=== PATIENT | male | born 1975 | race Hispanic/Latino ===

== ENCOUNTER 2024-10-29 04:16 | Emergency (ER) | payer OTHER ==
[~2024-10-29] VITALS: Ht 170.2 cm; Wt 108.9 kg
[2024-10-29 05:03] LABS: BASOPHILS # (AUTO) 0.05 K/uL (0.00-0.20); BASOPHILS % (AUTO) 0.6 % (0.0-5.0); EOSINOPHILS # (AUTO) 0.41 K/uL (0.00-0.70); EOSINOPHILS % (AUTO) 4.5 % (0.0-8.0); HEMATOCRIT 39.4 % (42-54); IMMATURE GRANULOCYTE ABSOLUTE 0.04 K/uL (0-1); LYMPHOCYTES # (AUTO) 1.7 K/uL (1.0-4.8); LYMPHOCYTES % (AUTO) 19.1 % (21.0-51.0); MEAN CORPUSCULAR HEMOGLOBIN 30.8 pg (27.0-33.0); MEAN CORPUSCULAR HGB CONC 35.3 g/dL (32.0-36.0); MEAN CORPUSCULAR VOLUME 87.4 fL (79-99); MONOCYTES # (AUTO) 0.6 K/uL (0.1-1.0); MONOCYTES % (AUTO) 6.1 % (3.0-13.0); NEUTROPHILS # (AUTO) 6.3 K/uL (1.8-7.7); NEUTROPHILS % (AUTO) 69.3 % (40.0-77.0); PLATELET COUNT (AUTO) 174 K/uL (130-400); RED BLOOD CELL COUNT(AUTO) 4.51 MIL/uL (4.50-6.20); RED CELL DISTRIBUTION WIDTH 13.1 % (11.0-15.5)
[2024-10-29 05:16] LABS: CREATININE 0.8 mg/dL (0.5-1.3); POTASSIUM 3.4 mmol/L (3.5-5.1)
--- NOTE | 2024-10-29 05:28 | ERN ---
ED Note History of Present Illness Stated Complaint: SHORTNESS OF BREATH Chief Complaint: Shortness of Breath Time Seen by MD: 04:32 Dictation: This is a 49-year-old morbidly obese male who came into the emergency room as he felt that he was choking and could not get his breath. Patient has multiple medical problems and psychiatric issues and substance abuse. He was trying to be sober and indicated that last night he relapsed. Starting from 7:00 p.m. to midnight he was drinking alcohol and also indulged in crack cocaine. Subsequently he developed tingling all over and difficulty breathing along with a sensation of his throat closing up. He came into the ER for further evaluation Temperature 97.8 pulse 63 respirations 16 blood pressure 110/57 pulse oximetry 96% on room air His chronic medical problems include diabetes mellitus, hypertension, hypercholesterolemia, morbid obesity, PTSD, depression Past Medical History Past Medical History: Diabetes-Type II, High Cholesterol, Hypertension Surgical History: None PSYCH History: anxiety, depression, post traumatic stress Family History: Negative Social History: Drugs, ETOH RN Note Reviewed/Agreed w/PFSH: Yes Review of System Dictation Constitutional: Negative for fever,chills, and weight loss Eyes: Negative for injury, pain,redness, and discharge ENT: Negative for injury,pain or swelling Cardiovascular: Negative for chest pain, palpitations, and edema Respiratory: Positive for shortness of breath, cough, and wheezing, Abdomen/GI: Negative for abdominal pain, nausea, vomiting, diarrhea, and constipation Back: Negative for injury and pain : Negative for injury, bleeding and discharge MS/Extremity: Negative for injury and deformity Skin: Negative for rash, and discoloration Neuro: Negative for headache, weakness, numbness, tingling, and seizure Psych: Negative for suicide ideation, homicidal ideation, and hallucinations Initial Vital Sign VS Vital Signs Date Time Temp Pulse Resp B/P (MAP) Pulse Ox O2 Delivery O2 Flow Rate FiO2 10/29/24 04:18 63 16 110/57 96 Room Air 0 10/29/24 05:36 21 10/29/24 06:34 98.4 Physical Exam Dictation General: awake, alert, NAD morbidly obese male Head/Face: Normocephalic, atraumatic Eyes: PERRL, EOMI, vision at baseline ENT: oral cavity clear, TMs clear, no signs of infection Neck: Trachea midline, supple, no nuchal rigidity-large amounts of adipose tissue and short thick neck Cardiovascular: RRR, normal S1/S2, No MRGs, no JVD Respiratory: CTAB, no respiratory distress, No rales or wheezes Abdomen: Soft, non-tender, non-distended, normal bowel sounds, no guarding or rebound. Skin: Warm, dry, normal turgor, no rash MS/Extremity: Pulses equal, no cyanosis, neurovascular intact, FROM Neuro: COAx4, GCS 15, strength 5/5, CN 2-12 intact, normal cerebellar exam, normal gait, Psych: Normal behavior, mood, and affect normal Extremities-trace edema without any palpable cords, Homans sign is negative Results (Laboratory/Radiology) Laboratory/Radiology Laboratory Tests Test 10/29/24 04:32 10/29/24 06:48 10/29/24 07:07 White Blood Count 9.0 K/uL (4.8-10.8) Red Blood Count 4.51 MIL/uL (4.50-6.20) Hemoglobin 13.9 g/dL (14.0-18.0) L Hematocrit 39.4 % (42-54) L Mean Corpuscular Volume 87.4 fL (79-99) Mean Corpuscular Hemoglobin 30.8 pg (27.0-33.0) Mean Corpuscular Hemoglobin Concent 35.3 g/dL (32.0-36.0) Red Cell Distribution Width 13.1 % (11.0-15.5) Platelet Count 174 K/uL (130-400) Mean Platelet Volume 11.4 fL (7.5-10.5) H Immature Granulocyte % (Auto) 0.4 % (0-1) Neutrophils (%) (Auto) 69.3 % (40.0-77.0) Lymphocytes (%) (Auto) 19.1 % (21.0-51.0) L Monocytes (%) (Auto) 6.1 % (3.0-13.0) Eosinophils (%) (Auto) 4.5 % (0.0-8.0) Basophils (%) (Auto) 0.6 % (0.0-5.0) Neutrophils # (Auto) 6.3 K/uL (1.8-7.7) Lymphocytes # (Auto) 1.7 K/uL (1.0-4.8) Monocytes # (Auto) 0.6 K/uL (0.1-1.0) Eosinophils # (Auto) 0.41 K/uL (0.00-0.70) Basophils # (Auto) 0.05 K/uL (0.00-0.20) Absolute Immature Granulocyte (auto 0.04 K/uL (0-1) Nucleated Red Blood Cells 0.0 % (0.0-0.19) Sodium Level 141 mmol/L (136-145) Potassium Level 3.4 mmol/L (3.5-5.1) L Chloride Level 105 mmol/L (101-111) Carbon Dioxide Level 27 mmol/L (21-32) Blood Urea Nitrogen 6 mg/dL (7-18) L Creatinine 0.8 mg/dL (0.5-1.3) Glomerular Filtration Rate Calc 107 mL/min (>90) Random Glucose 98 mg/dL (70-105) Total Calcium 8.2 mg/dL (8.5-10.1) L Urine Opiates Screen NEGATIVE (NEGATIVE) Urine Barbiturates Screen NEGATIVE (NEGATIVE) Urine Phencyclidine Screen NEGATIVE (NEGATIVE) Urine Amphetamines Screen NEGATIVE (NEGATIVE) Urine Benzodiazepines Screen NEGATIVE (NEGATIVE) Urine Cocaine Screen POSITIVE (NEGATIVE) H Urine Marijuana (THC) Screen NEGATIVE (NEGATIVE) Serum Alcohol < 3 mg/dL (0-10) Labs Reviewed?: Yes ED Course ED Course Orders Procedure Category Date Status Time Cbc With Differential LAB 10/29/24 Complete 04:37 Basic Metabolic Panel LAB 10/29/24 Complete 04:37 Chest 1vw RAD 10/29/24 Taken 04:43 12 Lead Ekg Tracing- EKG 10/29/24 Complete Technical 04:43 Drug Screen Urine LAB 10/29/24 Complete 05:05 Ipratropium/Albuterol PHA 10/29/24 Complete Neb (Duoneb) 05:30 Methylprednisolone PHA 10/29/24 Complete Succ 40mg (Solu-Medro 05:30 Alcohol, Blood LAB 10/29/24 Complete 05:28 Potassium Bicarb/Cit PHA 10/29/24 Complete Ac 25meq (K-Lyte Ta 06:00 Ketorolac PHA 10/29/24 Complete Tromethamine 15mg/Ml 07:30 Current Medications Medications (Trade) Dose Ordered Sig/Santhosh Route PRN Reason Start Time Stop Time Status Last Admin Dose Admin Albuterol (DUOneb) 1 UDVIAL ONCE ONCE IH 10/29/24 05:30 10/29/24 05:31 DC 10/29/24 06:26 Ketorolac Tromethamine (toRADol) 15 mg ONCE ONCE IM 10/29/24 07:30 10/29/24 07:31 DC 10/29/24 07:31 Methylprednisolone Sodium Succinate (Solu-medROL 40MG) 40 mg ONCE ONCE IM 10/29/24 05:30 10/29/24 05:31 DC 10/29/24 06:02 Potassium Bicarbonate (K-Lyte Tablet Eff 25 Meq Tablet.eff) 25 meq ONCE ONCE PO 10/29/24 06:00 10/29/24 06:01 DC 10/29/24 06:02 Vital Signs Date Time Temp Pulse Resp B/P (MAP) Pulse Ox O2 Delivery O2 Flow Rate FiO2 10/29/24 08:05 97.3 57 14 103/61 97 Room Air* 0 21 10/29/24 06:34 98.4 52 16 94/54 95 Room Air* 0 21 10/29/24 06:28 54 20 10/29/24 05:36 53 15 98/48 94 Room Air* 0 21 10/29/24 04:18 63 16 110/57 96 Room Air 0 We will perform diagnostic labs, advanced imaging and administer medications according to the patient's complaint. Once the results are available, will review and personally interpreted the labs to rule out any acute life- threatening emergency the trach require immediate intervention and treatment. I will then re-evaluate the patient after treatment and diagnostic exams have return to determine whether the patient requires any further testing, can safely be discharged home or need further admission to hospital for additional treatment and evaluation. Medical Decision Making MDM MDM: Differential diagnosis: Reactive airway dysfunction syndrome, chemical pneumonitis, chemical bronchitis, crack lung Rationale: Tests considered and ordered secondary to shared decision making include: Previous outside records reviewed: Old ER visits. Risk of complication and/or morbidity or mortality of patient management: None Medications-Per medication reconciliation Need for hospitalization: Patient does not meet criteria for hospitalization. Need for emergency major/minor surgery: No There are no social concerns with this patient. Prescription drug management Prescriptions will include symptomatic care Patient's prior external medical records from other ER visits were reviewed by me as indicated. Prior testing and results from previous visits were reviewed. Prior tests were taken into account with medical decision making and resource utilization, independent historian/historians were used to obtain complete medical history. I independently interpreted the test that were performed, results were reviewed by me and considered findings on radiology if ordered. Medical management and examination interpretation discussions were had by me with other qualified healthcare professionals as indicated for the patient's care. Problem List Problem List: (1) Reactive airways dysfunction syndrome (2) Cocaine intoxication (3) Alcohol abuse DX & DISP Disposition: Discharge Departure Impression: Primary Impression: Reactive airways dysfunction syndrome Additional Impressions: Cocaine intoxication, Alcohol abuse Condition: Stable Additional Instructions: Patient and the caregiver have been informed of all the diagnostic tests and the imaging conducted during the today's visit to the emergency room and has verbalized understanding of the results I have personally reviewed and interpreted all diagnostic exams performed here in the ER today as well as the vital signs documented by the nursing staff. The patient is now being discharged to home and should follow up with the primary care physician or the specialist as directed by the ER staff. Follow-up with primary care provider in 1 to 2 days. Take medications as directed here in the emergency room. Okay to continue home medications unless otherwise discussed during your visit in the emergency room today. Return to your nearest emergency room if symptoms worsen or if there is no improvement. Call 911 if you need immediate assistance. Take Tylenol or Motrin [id number] as needed and if no contraindications are present. Increase oral hydration. A wound culture or urine culture was ordered here in the em ergency room department please follow-up with primary care provider and advise them to get repeat ports from our facility. If you had any Jeet wrap/splints that were applied here, please do not remove them until you see your primary care or specialty. Referrals: SALAZAR ALDANA MD (PCP) Time of Disposition: 08:14 YASSINE DILL MD Oct 29, 2024 05:28 KENDRA CASE MD Oct 29, 2024 08:14
--- NOTE | 2024-10-29 05:51 | NUR ---
THOPU INFORMED ABOUT POTASSIUM AND CL LEVELS; ORDERS RECEIVED AND TRANSCRIBED
[2024-10-29] MEDS: Solu-medROL 40MG VIAL IM ONE (06:02)
[2024-10-29] MEDS: PoTASSium BIcarbonate/CIT AC 25 MEQ TABLET.EFF PO ONE (06:02)
[2024-10-29] MEDS: IpraTROPium/alBUTERol SULFATE 3 ML SOLUTION IH ONE (06:26)
[2024-10-29 06:28] VITALS: PULSE 54; RESP 20
--- NOTE | 2024-10-29 06:31 | EKG ---
[facility] Test Date: 2024-10-29 Test Time: 05:23:12 Pat Name: CARTER ISSA Department: [facility] Patient [place]: [facility] [id number] Room: Gender: Sales Consultant Insurance: [id number] : [id number] Requested By: YASSINE DILL Order Number: [id number] Reading MD: Angel Watson Measurements Intervals [place] Rate: 53 P: 2 IA: 162 QRS: 25 QRSD: 91 T: 55 QT: 476 QTc: 447 Interpretive Statements Sinus rhythm Low voltage, precordial leads No previous ECG available for comparison Electronically Signed On 10-29-2024 19:09:19 INSIDE OUTSIDE SALES REPRESENTATIVE by Angel Watson Please click the below link to view image of tracing.
--- NOTE | 2024-10-29 07:03 | NUR ---
REPORT GIVEN TO MICHAEL ARAMBULA AT THIS TIME
[2024-10-29 07:30] LABS: AMPHET/METH SCREEN,URINE NEGATIVE (NEGATIVE); BARBITURATE SCREEN, URINE NEGATIVE (NEGATIVE); BENZODIAZEPINES SCREEN,URINE NEGATIVE (NEGATIVE); CANNABINOID SCREEN,URINE NEGATIVE (NEGATIVE); COCAINE SCREEN,URINE POSITIVE (NEGATIVE); OPIATE SCREEN,URINE NEGATIVE (NEGATIVE); PHENCYCLIDINE SCREEN,URINE NEGATIVE (NEGATIVE)
[2024-10-29] MEDS: ketOROlac 15MG/ML VIAL (15MG/ML) IM ONE (07:31)
[2024-10-29 08:05] VITALS: BP 103/61; PULSE 57; RESP 14; TEMP 97.4; O2SAT 97
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
--- NOTE | 2024-10-29 09:50 | HMCIMG ---
CHEST 1VW HISTORY: Shortness of breath COMPARISON: None FINDINGS: A frontal projection of the chest was obtained. No acute pulmonary infiltrates is seen. The heart is borderline enlarged. Prominent interstitial markings are seen. Degenerative changes are seen. No evidence of aortic calcification is seen. IMPRESSION: 1. No acute pulmonary infiltrate is seen.
== END 2024-10-29 08:35 | disposition home or self-care (01) ==
LOC: EDH 04:16
DX: J68.3 Other acute and subacute respiratory conditions due to chemicals, gases, fumes and vapors (principal); F14.129 Cocaine abuse with intoxication, unspecified; F10.10 Alcohol abuse, uncomplicated; E11.9 Type 2 diabetes mellitus without complications; E78.00 Pure hypercholesterolemia, unspecified; I10 Essential (primary) hypertension
CPT/HCPCS: 99285; 71045; 80048; 80305; 85025; 36415; 96372 ×2; 93005; 94640; J2919; J1885

== ENCOUNTER 2024-11-03 06:00 | Emergency (ER) | payer OTHER ==
[~2024-11-03] VITALS: Ht 170.2 cm; Wt 108.9 kg
[2024-11-03 06:03] VITALS: TEMP 97.5
[2024-11-03 06:26] LABS: BASOPHILS # (AUTO) 0.04 K/uL (0.00-0.20); BASOPHILS % (AUTO) 0.4 % (0.0-5.0); EOSINOPHILS # (AUTO) 0.41 K/uL (0.00-0.70); EOSINOPHILS % (AUTO) 4.2 % (0.0-8.0); IMMATURE GRANULOCYTE ABSOLUTE 0.04 K/uL (0-1); LYMPHOCYTES % (AUTO) 20.2 % (21.0-51.0); MEAN CORPUSCULAR HEMOGLOBIN 31.5 pg (27.0-33.0); MEAN CORPUSCULAR HGB CONC 36.4 g/dL (32.0-36.0); MEAN CORPUSCULAR VOLUME 86.5 fL (79-99); MONOCYTES # (AUTO) 0.7 K/uL (0.1-1.0); MONOCYTES % (AUTO) 6.9 % (3.0-13.0); NEUTROPHILS # (AUTO) 6.6 K/uL (1.8-7.7); NEUTROPHILS % (AUTO) 67.9 % (40.0-77.0); PLATELET COUNT (AUTO) 184 K/uL (130-400); RED BLOOD CELL COUNT(AUTO) 4.51 MIL/uL (4.50-6.20); RED CELL DISTRIBUTION WIDTH 13.2 % (11.0-15.5); WHITE BLOOD COUNT (AUTO) 9.7 K/uL (4.8-10.8)
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
[2024-11-03 06:37] LABS: CREATININE 0.8 mg/dL (0.5-1.3); POTASSIUM 3.6 mmol/L (3.5-5.1)
[2024-11-03] MEDS ORDERED: IOHEXOL-350 50ML VIAL IV ONE (06:52)
--- NOTE | 2024-11-03 06:55 | NUR ---
REPORT RECEIVED FROM VIPUL KATHLEEN
--- NOTE | 2024-11-03 07:05 | NUR ---
PT JUST RETURNED FROM RADIOLOGY
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
[2024-11-03 08:24] VITALS: BP 103/48; PULSE 60; RESP 17; O2SAT 98
--- NOTE | 2024-11-04 09:22 | HMCIMG ---
CHEST 1VW REASON: SOB COMPARISON: 10/29/2024 FINDINGS: Heart size is normal and unchanged. There is central pulmonary vascular fullness which may be early vascular congestion. There are no pleural effusions. There are no focal infiltrates. IMPRESSION: 1. The mild central pulmonary vascular congestion, new since prior exam.
[2024-11-04] MEDS ORDERED: ISOS-58 PO (15:14)
[2024-11-04] MEDS ORDERED: DOXE10CA2 PO (15:14)
[2024-11-04] MEDS ORDERED: VENL50TA29 PO (15:14)
[2024-11-04] MEDS ORDERED: METO-391 PO (15:15)
[2024-11-04] MEDS ORDERED: ASPI-1005 PO (15:15)
== END 2024-11-03 08:26 | disposition home or self-care (01) ==
LOC: EDH 06:00
DX: J02.9 Acute pharyngitis, unspecified (principal); F14.129 Cocaine abuse with intoxication, unspecified; E11.9 Type 2 diabetes mellitus without complications; E78.00 Pure hypercholesterolemia, unspecified; F17.290 Nicotine dependence, other tobacco product, uncomplicated; F20.9 Schizophrenia, unspecified; I10 Essential (primary) hypertension
CPT/HCPCS: 99285; 70491; 71045; 82550; 84484; 80048; 85025; 36415; Q9967

== ENCOUNTER 2025-07-23 17:01 | Emergency (ER) | payer MEDICARE, OTHER ==
[~2025-07-23] VITALS: Ht 172.7 cm; Wt 102.1 kg
[~2025-07-23 17:01] MED LIST: ASPI-1005 PO; DOXE10CA2 PO; ISOS-58 PO; METO-391 PO; VENL50TA29 PO
--- NOTE | 2025-07-23 17:10 | NUR ---
FSBS-465MG/DL
[2025-07-23 17:19] VITALS: TEMP 97.9
[2025-07-23 17:44] LABS: IMMATURE GRANULOCYTE ABSOLUTE 0.06 K/uL (0-1); NUCLEATED RED BLOOD CELLS 0.0 % (0.0-0.19); PLATELET COUNT (AUTO) 180 K/uL (130-400); RED BLOOD CELL COUNT(AUTO) 4.96 MIL/uL (4.50-6.20); RED CELL DISTRIBUTION WIDTH 13.0 % (11.0-15.5); WHITE BLOOD COUNT (AUTO) 8.3 K/uL (4.8-10.8)
[2025-07-23] MEDS: 0.9%NACL 1000ML 1,000 ML IV ONE (17:47)
[2025-07-23 18:03] LABS: CREATININE 1.0 mg/dL (0.5-1.3); GLOMERULAR FILTR. RATE CALC 91.0 mL/min (>90); SODIUM SERUM 126.0 mmol/L (136-145); UREA NITROGEN, BLOOD 12.0 mg/dL (7-18)
[2025-07-23 18:14] LABS: GLUCOSE,RANDOM 491.0 mg/dL (70-105)
[2025-07-23 18:43] LABS: APPEARANCE,URINE CLEAR (CLEAR); GLUCOSE, URINE (UA) >=1000 mg/dL (NEGATIVE); LEUKOCYTE ESTERASE ,URINE NEGATIVE Leu/uL (NEGATIVE); NITRATE,URINE NEGATIVE (NEGATIVE); OCCULT BLOOD,URINE NEGATIVE (NEGATIVE)
[2025-07-23 18:53] LABS: ADD UA MICROSCOPIC NO
--- NOTE | 2025-07-23 19:02 | ERN ---
General Chief Complaint: Hyperglycemia Stated Complaint: HYPERGLYCEMIA Time Seen by MD: 19:14 History of Present Illness Initial Comments This is a 49-year-old male who presented to the emergency department following laboratory evaluation at a [facility] facility, where he was found to have elevated blood glucose. He reports progressive tiredness and fatigue. Two days prior to presentation, he noted transient numbness in the right lower extremity, which has since resolved. He currently denies any ongoing sensory deficits.There is no history of burning during urination, visual disturbances, or changes in bowel or bladder function. Allergies: Coded Allergies: No Known Drug Allergies (Unverified Allergy, Unknown, 11/03/24) Home Meds Reported Medications Metoprolol Succinate (Metoprolol Succinate) 50 Mg Tab.er.24h, 0.5 TAB PO DAILY for 30 Days, #30 TAB 0 Refills 11/04/24 Aspirin (ASPIRIN 81MG CHEW TAB) 81 Mg Tab.chew, 1 TAB PO DAILY for 30 Days, #30 TAB 0 Refills 11/04/24 Doxepin HCl (Doxepin HCl) 10 Mg Capsule, 2 CAP PO HS for 30 Days, #30 CAP 0 Refills 11/04/24 Venlafaxine HCl (Venlafaxine HCl) 50 Mg Tablet, 1 TAB PO DAILY for 30 Days, #60 TAB 0 Refills 11/04/24 Isosorbide Mononitrate (Isosorbide Mononitrate) 20 Mg Tablet, 60 MG PO DAILY, TAB 11/04/24 Past Medical History Past Medical History: Anxiety, Depression, Diabetes-Type II, High Cholesterol, Hypertension Medical History Other: SUBSTANCE ABUSE, PTSD, CHRONIC PAIN Past Surgical History: Other Surgical History Other: RT WRIST SX, RT KNEE SX Family History Family History: Negative Social History Social History: Drugs, ETOH Constitutional: (+) weakness (Feels tired and fatigued easily) EENTM: (-) eye pain, (-) blurred vision, (-) tearing, (-) double vision, (-) ear pain, (-) ear discharge, (-) nose pain, (-) nose congestion, (-) throat p ain, (-) Throat swelling, (-) mouth pain, (-) tooth pain, (-) mouth swelling, (- ) other documentation Respiratory: (-) cough, (-) orthopnea, (-) short of breath, (-) stridor, (-) wheezing, (-) other documentation Cardiovascular: (-) chest pain, (-) edema, (-) palpitations, (-) syncope, (-) dyspnea on exertion, (-) other documentation Gastrointestinal/Abdominal: (-) nausea, (-) vomiting, (-) diarrhea, (-) abdominal pain, (-) abdominal distention, (-) constipation, (-) rectal bleeding, (-) dark stool/melena, (-) other documentation Genitourinary: (-) penile discharge, (-) dysuria, (-) frequency, (-) hematuria, (-) pain, (-) other documentation Musculoskeletal: (-) Neck pain, (-) back pain, (-) Flank Pain, (-) joint pain, (-) joint swelling, (-) muscle pain, (-) muscle stiffness, (-) gout, (-) other documentation Skin: (-) laceration, (-) contusion, (-) abrasion, (-) abscess, (-) rash, (-) change in color, (-) change in hair, (-) change in nails, (-) diaphoresis, (-) dryness, (-) other documentation Neuro: (-) altered mental status, (-) headache, (-) syncope, (-) paralysis, (-) numbness, (-) seizure, (-) pre-existing deficit, (-) tremors, (-) weakness, (-) dizziness, (-) slurred speech, (-) vertigo, (-) other documentation Psych: (-) depression, (-) suicidal ideation, (-) anxiety, (-) emotional problems, (-) auditory hallucinations, (-) visual hallucinations Hematologic/Lymphatic: (-) anemia, (-) blood clots, (-) easy bleeding, (-) easy bruising, (-) swollen glands, (-) other documentation Immunological/Allergic: (-) food allergy, (-) grass allergy, (-) mold allergy, (-) pollen allergy, (-) HIV/AIDS, (-) transplant, (-) othe documentation Physical Exam General Appearance: (+) no apparent distress Orientation: (+) alert, (+) oriented x 3 Head/Face Trauma: No Ear, Nose, Throat: (+) hearing grossly normal Neck: (+) normal inspection Respiratory: (+) chest non-tender, (+) lungs clear Heart: (+) regular, (+) no gallop Vascular: (+) no edema, (+) normal peripheral pulse Gastrointestinal: (+) soft, (+) non-tender, (+) no organomegaly Extremities: (+) normal range of motion, (+) non-tender Results Laboratory and Microbiology Lab and Micro Result Laboratory Tests Test 07/23/25 17:10 07/23/25 17:17 07/23/25 17:52 07/23/25 18:35 Whole Blood Glucose 465 MG/DL (70-110) *H 341 MG/DL (70-110) H Bedside Glucose Comment Notified Nurse White Blood Count 8.3 K/uL (4.8-10.8) Red Blood Count 4.96 MIL/uL (4.50-6.20) Hemoglobin 15.5 g/dL (14.0-18.0) Hematocrit 42.1 % (42-54) Mean Corpuscular Volume 84.9 fL (79-99) Mean Corpuscular Hemoglobin 31.3 pg (27.0-33.0) Mean Corpuscular Hemoglobin Concent 36.8 g/dL (32.0-36.0) H Red Cell Distribution Width 13.0 % (11.0-15.5) Platelet Count 180 K/uL (130-400) Mean Platelet Volume 12.3 fL (7.5-10.5) H Immature Granulocyte % (Auto) 0.7 % (0-1) Neutrophils (%) (Auto) 66.0 % (40.0-77.0) Lymphocytes (%) (Auto) 16.3 % (21.0-51.0) L Monocytes (%) (Auto) 6.6 % (3.0-13.0) Eosinophils (%) (Auto) 9.7 % (0.0-8.0) H Basophils (%) (Auto) 0.7 % (0.0-5.0) Neutrophils # (Auto) 5.5 K/uL (1.8-7.7) Lymphocytes # (Auto) 1.4 K/uL (1.0-4.8) Monocytes # (Auto) 0.6 K/uL (0.1-1.0) Eosinophils # (Auto) 0.81 K/uL (0.00-0.70) H Basophils # (Auto) 0.06 K/uL (0.00-0.20) Absolute Immature Granulocyte (auto 0.06 K/uL (0-1) Nucleated Red Blood Cells 0.0 % (0.0-0.19) Red Blood Cell Morphology See comments Sodium Level 126 mmol/L (136-145) L Potassium Level 3.9 mmol/L (3.5-5.1) Chloride Level 90 mmol/L (101-111) *L Carbon Dioxide Level 28 mmol/L (21-32) Blood Urea Nitrogen 12 mg/dL (7-18) Creatinine 1.0 mg/dL (0.5-1.3) Glomerular Filtration Rate Calc 91 mL/min (>90) Random Glucose 491 mg/dL (70-105) *H Whole Blood Ketones Quantitative 0.1 mmol/L (0.0-0.6) Total Calcium 9.1 mg/dL (8.5-10.1) Urine Color COLORLESS (YELLOW) Urine Appearance CLEAR (CLEAR) Urine pH 6.5 (5.0-8.0) Urine Specific [place] 1.028 (1.001-1.031) Urine Protein NEGATIVE mg/dL (NEGATIVE) Urine Glucose (UA) >=1000 mg/dL (NEGATIVE) H Urine Ketones NEGATIVE mg/dL (NEGATIVE) Urine Occult Blood NEGATIVE (NEGATIVE) Urine Nitrate NEGATIVE (NEGATIVE) Urine Bilirubin NEGATIVE mg/dL (NEGATIVE) Urine Urobilinogen 0.2 mg/dL (0.2-1.0) Urine Leukocyte Esterase NEGATIVE Geovanny/uL Urine RBC /HPF (0-1) Urine WBC /HPF (0-1) Urine Bacteria /HPF (None Seen) Test 07/23/25 19:45 Whole Blood Glucose 291 MG/DL (70-110) H MDM Differential diagnosis: Uncontrolled diabetes, DKA, HHS, noncompliance with insulin regimen, underlying infectious process Rationale: Tests considered and ordered secondary to shared decision making include: Previous outside records reviewed: Old ER visits. Risk of complication and/or morbidity or mortality of patient management: None Medications-Per medication reconciliation Need for hospitalization: Patient does not meet criteria for hospitalization. Need for emergency major/minor surgery: No There are no social concerns with this patient. Prescription drug management Prescriptions will include symptomatic care Patient's prior external medical records from other ER visits were reviewed by me as indicated. Prior testing and results from previous visits were reviewed. Prior tests were taken into account with medical decision making and resource utilization, independent historian/historians were used to obtain complete medical history. I independently interpreted the test that were performed, results were reviewed by me and considered findings on radiology if ordered. Medical management and examination interpretation discussions were had by me with other qualified healthcare professionals as indicated for the patient's care. ED Course Orders Procedure Category Date Status Time Cbc With Differential LAB 07/23/25 Complete 17:08 0.9%Nacl 1000ml (Ns PHA 07/23/25 Complete 1000ml) 17:30 Basic Metabolic Panel LAB 07/23/25 Complete 17:08 Ketone Blood LAB 07/23/25 Complete Quantitative 17:08 Insulin Regular, PHA 07/23/25 Complete Human 3ml (Humulin R 18:00 Urinalysis Profile LAB 07/23/25 Complete 18:10 Bedside Glucose CPOE 07/23/25 Transmitted Fingerstick 18:31 Insulin Regular, PHA 07/23/25 Complete Human 3ml (Humulin R 19:00 Insulin Regular, PHA 07/23/25 Complete Human 3ml (Humulin R 20:30 Current Medications Medications (Trade) Dose Ordered Sig/Santhosh Route PRN Reason Start Time Stop Time Status Last Admin Dose Admin Insulin Human Regular (humuLIN R 100 UNIT/ML 3ML) 5 unit ONCE ONCE IV 07/23/25 18:00 07/23/25 18:01 DC 07/23/25 17:57 Insulin Human Regular (humuLIN R 100 UNIT/ML 3ML) 5 unit ONCE ONCE IV 07/23/25 19:00 07/23/25 19:01 DC 07/23/25 19:20 Insulin Human Regular (humuLIN R 100 UNIT/ML 3ML) 5 unit ONCE ONCE IV 07/23/25 20:30 07/23/25 20:32 DC 07/23/25 20:37 Sodium Chloride 1,000 ml @ 0 mls/hr ONCE ONCE IV 07/23/25 17:30 07/23/25 17:31 DC 07/23/25 17:47 Vital Signs Date Time Temp Pulse Resp B/P (MAP) Pulse Ox O2 Delivery O2 Flow Rate FiO2 07/23/25 20:46 88 18 122/80 97 Room Air* 0 21 07/23/25 17:19 97.9 104 20 129/83 97 Room Air* 0 21 07/23/25 17:03 97.9 111 18 136/96 97 Room Air 0 7:00 p.m. patient was signed out to me by a.m. physicians. This is a 49-year-old morbidly obese male who apparently went to see his primary care physician at the [facility] today and labs were drawn and he received a phone call from his primary care physician that his sugar was in the high 400s and to present to the ER. And hence his showed a his initial labs revealed a sugar of 495. No evidence of any fever chills or obvious infectious process noted. He has a history of cocaine abuse. Admits to dietary indiscretions. Temperature 97.8 pulse 111 respirations 18 blood pressure 136/96 with a pulse oximetry of 98% on room air Patient has chronic medical problems include diabetes mellitus insulin requiring, hypertension, hypercholesterolemia Labs reviewed sodium 126 BUN and creatinine are 12 and 1.0 chloride of 3.9. Urinalysis is unremarkable CBC is with a normal limits. Ketones are 0.1 Patient was given IV fluids and insulin, Over the past few hours of monitoring his sugars were 491, 465, 341, 291 and the last reading was 241. Patient feels significantly improved and counseling done on diligent compliance with medications and dietary changes as well as weight loss. He will be discharged to home to follow up with his primary care physician and resume his home insulin regimen DX & DISP Disposition: Discharge Departure Impression: Primary Impression: Uncontrolled diabetes mellitus with hyperglycemia Additional Impressions: Hyponatremia, Dehydration Condition: Stable Additional Instructions: Patient and the caregiver have been informed of all the diagnostic tests and the imaging conducted during the today's visit to the emergency room and has verbalized understanding of the results I have personally reviewed and interpreted all diagnostic exams performed here in the ER today as well as the vital signs documented by the nursing staff. The patient is now being discharged to home and should follow up with the primary care physician or the specialist as directed by the ER staff. Follow-up with primary care provider in 1 to 2 days. Take medications as directed here in the emergency room. Okay to continue home medications unless otherwise discussed during your visit in the emergency room today. Return to your nearest emergency room if symptoms worsen or if there is no improvement. Call 911 if you need immediate assistance. Take Tylenol or Motrin [id number] as needed and if no contraindications are present. Increase oral hydration. A wound culture or urine culture was ordered here in the emergency room department please follow-up with primary care provider and advise them to get repeat ports from our facility. If you had any Jeet wrap/splints that were applied here, please do not remove them until you see your primary care or specialty. Extensive counseling on lifestyle modifications including diligent compliance with medications dietary restrictions to control his sugars and abstinence from recreational drugs. Also counseled on weight loss exercise. Referrals: STEPHENIE ISBELL MD (PCP) NOAH FUENTES MD Jul 23, 2025 19:02 YASSINE DILL MD Jul 23, 2025 20:32
[2025-07-23 21:27] VITALS: BP 118/78; PULSE 78; RESP 18; O2SAT 97
== END 2025-07-23 21:38 | disposition home or self-care (01) ==
LOC: EDH 17:01
DX: E11.65 Type 2 diabetes mellitus with hyperglycemia (principal); E87.1 Hypo-osmolality and hyponatremia; E86.0 Dehydration; E78.00 Pure hypercholesterolemia, unspecified; F32.A Depression, unspecified; F41.9 Anxiety disorder, unspecified; I10 Essential (primary) hypertension; Z79.82 Long term (current) use of aspirin; Z79.899 Other long term (current) drug therapy
CPT/HCPCS: 99284; 96374; 96361; 80048; 85025; 82948 ×4; 82010; 81001; 36415; 96376; 81003; J1815 ×3; J7030; 96375